=== PATIENT | female | born 1965 | race Two or more races ===

== ENCOUNTER 2022-11-21 19:23 | Emergency (ER) | payer OTHER ==
[~2022-11-21] VITALS: Ht 152.4 cm; Wt 77.3 kg
[2022-11-21 19:55] VITALS: BP 122/68
[2022-11-21] MEDS ORDERED: AMOX TR/POT CLAV 875 MG/125 MG TABLET PO ONE (20:15)
[2022-11-21] MEDS ORDERED: NEOMYCIN/POLYMYXIN B/HYDROCORT 10 ML OTIC SOLUTION AS ONE (20:15)
[2022-11-21] MEDS ORDERED: NEOM10SO14 AS (20:38)
[2022-11-21] MEDS ORDERED: AMOX1TAB16 PO (20:38)
== END 2022-11-21 20:46 | disposition home or self-care (01) ==
LOC: EMS 19:24
DX: H60.92 Unspecified otitis externa, left ear (principal); H61.22 Impacted cerumen, left ear; E11.9 Type 2 diabetes mellitus without complications
CPT/HCPCS: 99283